=== PATIENT | male | born 1950 | race Caucasian/White ===

== ENCOUNTER 2017-08-09 09:45 | Emergency (ER) | payer MEDICARE, BC ==
[~2017-08-09] VITALS: Ht 182.9 cm; Wt 100.8 kg
[2017-08-09 10:22] LABS: CLARITY,URINE SLIGHTLY CLOUDY (Clear); COLOR,URINE YELLOW (Yellow); GLUCOSE, URINE NEGATIVE (Neg); KETONES,URINE NEGATIVE (Neg); LEUKOCYTE ESTERASE ,URINE NEGATIVE (Neg); NITRITES, URINE NEGATIVE (Neg); OCCULT BLOOD,URINE TRACE-LYSED (Neg); PH,URINE 5.5 (4.8-8.0); PROTEIN,URINE 100 mg/dl (Neg)
[2017-08-09 10:37] LABS: UA COLLECTION TYPE CLN CATCH MIDSTREAM
[2017-08-09 10:42] LABS: BASOPHILS % (AUTO) 0.9 % (0-1); EOSINOPHILS # (AUTO) 0.3 X10'3 (0-0.9); HEMATOCRIT 43.2 % (42.0-52.0); HEMOGLOBIN 14.4 g/dl (14.0-17.9); LYMPHOCYTES % (AUTO) 17.9 % (21-51); MEAN CORPUSCULAR HEMOGLOBIN 31.6 PG (27.0-31.0); MEAN CORPUSCULAR HGB CONC 33.4 % (33.0-36.5); MEAN CORPUSCULAR VOLUME 94.4 FL (78-98); MEAN PLATELET VOLUME 8.5 FL (7.4-10.4); MONOCYTES # (AUTO) 0.5 X10'3 (0-0.9); MONOCYTES % (AUTO) 9.2 % (2-12); NEUTROPHILS # (AUTO) 3.5 X10'3 (1.8-7.7); PLATELET COUNT 255 X10'3 (140-440); RED BLOOD COUNT 4.58 X10'6 (4.70-6.10); RED CELL DISTRIBUTION WIDTH 17.9 % (11.5-14.5); WHITE BLOOD COUNT 5.3 X10'3 (4.5-11.0)
[2017-08-09 10:51] LABS: INR 1.2 INR; PROTHROMBIN TIME 12.7 SECONDS (9.0-12.0)
[2017-08-09 10:56] LABS: MUCUS STRANDS FEW /LPF (Neg); RBC,URINE 0-2 /HPF (0-2); WBC,URINE 0-4 /HPF (0-4)
[2017-08-09 10:56] LABS: ALANINE AMINOTRANSFERASE 30 U/L (12-78); ALBUMIN 3.3 G/DL (3.4-5.0); ALBUMIN/GLOBULIN RATIO 0.9 (1.1-1.5); ALKALINE PHOSPHATASE 101 IU/L (46-116); AMYLASE 44 U/L (25-115); ANION GAP 10 (8-16); ASPARTATE AMINO TRANSFERASE 27 U/L (10-37); BILIRUBIN,TOTAL 1.5 MG/DL (0.1-1.0); BLOOD UREA NITROGEN 19 MG/DL (7-18); BUN/CREATININE RATIO 14.5 (5.4-32.0); CALCIUM 9.3 MG/DL (8.5-10.1); CHLORIDE 107 MMOL/L (99-107); CREATININE 1.31 MG/DL (0.60-1.10); GLUCOSE 105 MG/DL (70-104); LIPASE 191 U/L (73-393); POTASSIUM 4.1 MMOL/L (3.5-5.1); SODIUM 141 MMOL/L (135-145); TOTAL CARBON DIOXIDE 24.2 MMOL/L (24-32); eGFR 55 ML/MIN
[2017-08-09 10:57] LABS: BACTERIA,URINE NONE SEEN /HPF (Neg); SQUAMOUS EPITHELIAL CELL,UR FEW /LPF (FEW); TRANSITIONAL EPI CELLS,URINE FEW /HPF
[2017-08-09 13:14] VITALS: BP 152/88
[2017-08-09 13:32] LABS: ALBUMIN,BODY FLUID 1.9 G/DL; TOTAL PROTEIN,BODY FLUID 3.5 G/DL
[2017-08-09 14:20] LABS: LYMPHOCYTES,BODY FLUID 61 %; MONOCYTES,BODY FLUID 21 %; NEUTROPHILS,BODY FLUID 18 %
[2017-08-09 14:21] LABS: BF WBC COUNT 275 /CU MM (0-1000); BFAPPEAR CLOUDY; BFCOLOR YELLOW; BFVOLUME 57 ML
[2017-08-09 14:22] LABS: BF MESOTHELIAL CELLS MODERATE; BF RBC COUNT 1490 /CU MM
[2017-08-09 15:56] LABS: OTHER CELLS,BODY FLUID MACROPHAGES
== END 2017-08-09 13:12 | disposition home or self-care (01) ==
LOC: ER 09:46
DX: R18.8 Other ascites (principal); R06.02 Shortness of breath
CPT/HCPCS: 36415; 49083; 80053; 81001; 82042; 82150; 83690; 84157; 85025; 85610; 89051; 99285

== ENCOUNTER 2017-08-31 18:10 | Emergency (ER) | payer MEDICARE, BC ==
[~2017-08-31] VITALS: Ht 182.9 cm; Wt 105.6 kg
[2017-08-31] MEDS ORDERED: furosemide 40mg/4ml inj IV ONE (18:35)
[2017-08-31 18:50] LABS: BASOPHILS % (AUTO) 0.6 % (0-1); EOSINOPHILS # (AUTO) 0.2 X10'3 (0-0.9); EOSINOPHILS % (AUTO) 4.2 % (0-6); HEMATOCRIT 43.7 % (42.0-52.0); HEMOGLOBIN 14.6 g/dl (14.0-17.9); LYMPHOCYTES # (AUTO) 1.3 X10'3 (1.1-4.8); LYMPHOCYTES % (AUTO) 22.2 % (21-51); MEAN CORPUSCULAR HEMOGLOBIN 31.6 PG (27.0-31.0); MEAN CORPUSCULAR HGB CONC 33.5 % (33.0-36.5); MEAN CORPUSCULAR VOLUME 94.3 FL (78-98); MEAN PLATELET VOLUME 8.8 FL (7.4-10.4); MONOCYTES # (AUTO) 0.6 X10'3 (0-0.9); MONOCYTES % (AUTO) 10.9 % (2-12); NEUTROPHILS # (AUTO) 3.5 X10'3 (1.8-7.7); NEUTROPHILS % (AUTO) 62.1 % (42-75); PLATELET COUNT 229 X10'3 (140-440); RED BLOOD COUNT 4.64 X10'6 (4.70-6.10); RED CELL DISTRIBUTION WIDTH 18.1 % (11.5-14.5); WHITE BLOOD COUNT 5.7 X10'3 (4.5-11.0)
[2017-08-31 19:12] LABS: ALANINE AMINOTRANSFERASE 27 U/L (12-78); ALBUMIN 3.4 G/DL (3.4-5.0); ALBUMIN/GLOBULIN RATIO 0.8 (1.1-1.5); ALKALINE PHOSPHATASE 112 IU/L (46-116); ANION GAP 12 (8-16); ASPARTATE AMINO TRANSFERASE 26 U/L (10-37); BILIRUBIN,TOTAL 1.4 MG/DL (0.1-1.0); BLOOD UREA NITROGEN 25 MG/DL (7-18); BUN/CREATININE RATIO 20.8 (5.4-32.0); CHLORIDE 105 MMOL/L (99-107); GLUCOSE 106 MG/DL (70-104); POTASSIUM 4.3 MMOL/L (3.5-5.1); SODIUM 139 MMOL/L (135-145); TOTAL CARBON DIOXIDE 22.5 MMOL/L (24-32); TOTAL PROTEIN 7.5 G/DL (6.4-8.2); eGFR 61 ML/MIN
[2017-08-31 19:53] VITALS: BP 150/96
== END 2017-08-31 19:55 | disposition home or self-care (01) ==
LOC: ER 18:11
DX: R18.8 Other ascites (principal); I10 Essential (primary) hypertension
CPT/HCPCS: 36415; 80053; 83880; 84484; 85025; 93005; 96374; 99285; J1940

== ENCOUNTER 2017-09-26 07:02 | Outpatient (CLI) | payer MEDICARE, BC ==
[2017-09-26] MEDS ORDERED: LACT10SO6 PO (07:41)
[2017-09-26] MEDS ORDERED: SPIR100T3 PO (07:41)
[2017-09-26] MEDS ORDERED: FURO-149 PO (07:41)
[2017-09-26] MEDS ORDERED: ZIN220C PO (07:41)
== END 2017-09-26 23:59 | disposition home or self-care (01) ==
LOC: LAB 07:02
PROVIDERS: ATTEND Internal Medicine Gastroenterology
DX: R18.8 Other ascites (principal)

== ENCOUNTER 2017-09-26 07:17 | Day surgery (SDC) | payer MEDICARE, BC ==
[~2017-09-26] VITALS: Ht 182.9 cm; Wt 95.8 kg
[2017-09-26] MEDS ORDERED: ZIN220C PO (07:41)
[2017-09-26] MEDS ORDERED: SPIR100T3 PO (07:41)
[2017-09-26] MEDS ORDERED: FURO-149 PO (07:41)
[2017-09-26] MEDS ORDERED: LACT10SO6 PO (07:41)
[2017-09-26 07:53] VITALS: BP 137/90
[2017-09-26 08:30] VITALS: BP 112/73
[2017-09-26] MEDS ORDERED: LIDOcaine 1% 30ml vial SQ ONE (08:30)
[2017-09-26 08:38] LABS: INR 1.2 INR; PARTIAL THROMBOPLASTIN TIME 26 SECONDS (22-32); PROTHROMBIN TIME 12.4 SECONDS (9.0-12.0)
[2017-09-26 08:45] VITALS: BP 97/62
[2017-09-26] MEDS ORDERED: albumin (human) 25% 100 ML IV solution IV PRN (08:50)
[2017-09-26] MEDS ORDERED: normal saline 1000ml 1,000 ML IV PRN (08:55)
[2017-09-26 08:58] LABS: ALANINE AMINOTRANSFERASE 21 U/L (12-78); ALBUMIN 3.3 G/DL (3.4-5.0); ALBUMIN/GLOBULIN RATIO 0.8 (1.1-1.5); ALKALINE PHOSPHATASE 104 IU/L (46-116); ANION GAP 10 (8-16); ASPARTATE AMINO TRANSFERASE 20 U/L (10-37); BILIRUBIN,TOTAL 1.1 MG/DL (0.1-1.0); BLOOD UREA NITROGEN 28 MG/DL (7-18); BUN/CREATININE RATIO 20.7 (5.4-32.0); CALCIUM 9.4 MG/DL (8.5-10.1); CHLORIDE 101 MMOL/L (99-107); CREATININE 1.35 MG/DL (0.60-1.10); GLUCOSE 85 MG/DL (70-104); POTASSIUM 3.8 MMOL/L (3.5-5.1); SODIUM 137 MMOL/L (135-145); TOTAL CARBON DIOXIDE 26.5 MMOL/L (24-32); TOTAL PROTEIN 7.3 G/DL (6.4-8.2); eGFR 53 ML/MIN
[2017-09-26 09:00] VITALS: BP 111/75
[2017-09-26 09:15] VITALS: BP 117/86
[2017-09-26 09:30] VITALS: BP 115/75
[2017-09-26 09:54] LABS: BASOPHILS % (AUTO) 0.6 % (0-1); EOSINOPHILS # (AUTO) 0.2 X10'3 (0-0.9); EOSINOPHILS % (AUTO) 4.2 % (0-6); HEMATOCRIT 41.1 % (42.0-52.0); LYMPHOCYTES # (AUTO) 0.7 X10'3 (1.1-4.8); LYMPHOCYTES % (AUTO) 16.3 % (21-51); MEAN CORPUSCULAR HEMOGLOBIN 32.2 PG (27.0-31.0); MEAN CORPUSCULAR HGB CONC 34.2 % (33.0-36.5); MEAN CORPUSCULAR VOLUME 94.2 FL (78-98); MEAN PLATELET VOLUME 8.5 FL (7.4-10.4); MONOCYTES # (AUTO) 0.5 X10'3 (0-0.9); MONOCYTES % (AUTO) 12.2 % (2-12); NEUTROPHILS # (AUTO) 2.9 X10'3 (1.8-7.7); NEUTROPHILS % (AUTO) 66.7 % (42-75); PLATELET COUNT 229 X10'3 (140-440); RED BLOOD COUNT 4.36 X10'6 (4.70-6.10); RED CELL DISTRIBUTION WIDTH 17.8 % (11.5-14.5); WHITE BLOOD COUNT 4.4 X10'3 (4.5-11.0)
[2017-09-26 10:19] LABS: ALBUMIN,BODY FLUID 2.3 G/DL; TOTAL PROTEIN,BODY FLUID 4.1 G/DL
[2017-09-26 10:47] LABS: BF WBC COUNT 510 /CU MM (0-1000); BFAPPEAR CLOUDY; BFCOLOR YELLOW; BFVOLUME 53 ML
[2017-09-26 10:48] LABS: BF RBC COUNT 1850 /CU MM
[2017-09-26 10:51] LABS: BASOPHILS,BODY FLUID 1 %; EOSINOPHILS,BODY FLUID 1 %; LYMPHOCYTES,BODY FLUID 76 %; MONOCYTES,BODY FLUID 5 %; NEUTROPHILS,BODY FLUID 17 %
[2017-09-26 10:52] LABS: BF MESOTHELIAL CELLS FEW
[2017-09-27 15:23] LABS: AFP,SERUM, TUMOR MARKER 2.3 ng/mL (0.0-8.3); HBSAG SCREEN Negative (Negative); HEPATITIS C ANTIBODY 0.1 s/co ratio (0.0-0.9)
== END 2017-09-26 09:40 | disposition home or self-care (01) ==
LOC: SSTAY O 07:17
PROVIDERS: ATTEND Radiology Diagnostic Radiology
DX: R18.8 Other ascites (principal); I11.0 Hypertensive heart disease with heart failure; I50.9 Heart failure, unspecified; F10.21 Alcohol dependence, in remission; Z79.01 Long term (current) use of anticoagulants; Z87.891 Personal history of nicotine dependence; Z79.899 Other long term (current) drug therapy
CPT/HCPCS: 36415; 49083; 80053; 82042; 82103; 82728; 83540; 83550; 84157; 84443; 85025; 85610; 85730; 86803; 87070; 87340; 89051; A6257; J3490; J7030; P9047

== ENCOUNTER 2017-11-07 07:00 | Day surgery (SDC) | payer MEDICARE, BC ==
[~2017-11-07 07:00] MED LIST: FURO-149 PO; LACT10SO6 PO; SPIR100T3 PO; ZIN220C PO
[2017-11-07] MEDS ORDERED: LIDOcaine 1% 30ml preserv. free vial ONE (07:56)
[2017-11-07 08:00] VITALS: BP 126/80
[2017-11-07 08:30] VITALS: BP 126/80
[2017-11-07] MEDS ORDERED: LIDOcaine 1% 30ml preserv. free vial SQ ONE (09:00)
== END 2017-11-07 19:39 | disposition home or self-care (01) ==
LOC: SSTAY O 07:00
PROVIDERS: ATTEND Radiology Diagnostic Radiology
DX: K70.31 Alcoholic cirrhosis of liver with ascites (principal); I11.0 Hypertensive heart disease with heart failure; I50.9 Heart failure, unspecified; F10.10 Alcohol abuse, uncomplicated; Z87.891 Personal history of nicotine dependence; Z79.899 Other long term (current) drug therapy
CPT/HCPCS: 76705; A6257; J3490

== ENCOUNTER 2017-11-30 07:39 | Day surgery (SDC) | payer MEDICARE, BC ==
[~2017-11-30] VITALS: Ht 182.9 cm; Wt 89.1 kg
[~2017-11-30 07:39] MED LIST changes: +LIDOcaine 1% 30ml preserv. free vial SQ STA
[2017-11-30 08:00] VITALS: BP 134/106
[2017-11-30] MEDS ORDERED: normal saline 1000ml 1,000 ML IV PRN (08:10)
[2017-11-30] MEDS ORDERED: albumin (human) 25% 100 ML IV solution IV PRN (08:10)
== END 2017-11-30 08:42 | disposition home or self-care (01) ==
LOC: SSTAY O 07:39
PROVIDERS: ATTEND Radiology Diagnostic Radiology
DX: R18.8 Other ascites (principal); I10 Essential (primary) hypertension; F41.9 Anxiety disorder, unspecified; B15.9 Hepatitis A without hepatic coma; Z72.89 Other problems related to lifestyle; Z87.891 Personal history of nicotine dependence; Z98.890 Other specified postprocedural states; Z79.899 Other long term (current) drug therapy
CPT/HCPCS: 76705; J7030; A6257

== ENCOUNTER 2018-01-16 15:41 | Inpatient (IN) | payer MEDICARE, BC ==
[~2018-01-16] VITALS: Ht 185.4 cm; Wt 96.0 kg
[~2018-01-16 15:41] MED LIST changes: +AMIO200T57 PO; +COR3.125T PO; +FURO40TA4 PO; -LIDOcaine 1% 30ml preserv. free vial SQ STA; +POTA10TA19 PO; +SACU1TAB PO; -SPIR100T3 PO; +SPIR100T5 PO
[2018-01-16 16:05] LABS: BASOPHILS % (AUTO) 0.6 % (0-1); EOSINOPHILS # (AUTO) 0.1 X10'3 (0-0.9); HEMATOCRIT 46.9 % (42.0-52.0); HEMOGLOBIN 15.8 g/dl (14.0-17.9); LYMPHOCYTES # (AUTO) 0.6 X10'3 (1.1-4.8); LYMPHOCYTES % (AUTO) 9.4 % (21-51); MEAN CORPUSCULAR HEMOGLOBIN 32.8 PG (27.0-31.0); MEAN CORPUSCULAR HGB CONC 33.7 % (33.0-36.5); MEAN CORPUSCULAR VOLUME 97.2 FL (78-98); MEAN PLATELET VOLUME 7.8 FL (7.4-10.4); MONOCYTES # (AUTO) 0.4 X10'3 (0-0.9); MONOCYTES % (AUTO) 6.6 % (2-12); NEUTROPHILS # (AUTO) 5.1 X10'3 (1.8-7.7); NEUTROPHILS % (AUTO) 82.4 % (42-75); PLATELET COUNT 294 X10'3 (140-440); RED BLOOD COUNT 4.82 X10'6 (4.70-6.10); RED CELL DISTRIBUTION WIDTH 16.5 % (11.5-14.5); WHITE BLOOD COUNT 6.2 X10'3 (4.5-11.0)
[2018-01-16 16:19] LABS: ALANINE AMINOTRANSFERASE 43 U/L (12-78); ALBUMIN/GLOBULIN RATIO 0.8 (1.1-1.5); ALKALINE PHOSPHATASE 129 IU/L (46-116); ANION GAP 11 (8-16); ASPARTATE AMINO TRANSFERASE 25 U/L (10-37); BILIRUBIN,TOTAL 1.7 MG/DL (0.1-1.0); BLOOD UREA NITROGEN 43 MG/DL (7-18); BUN/CREATININE RATIO 23.8 (5.4-32.0); CALCIUM 9.4 MG/DL (8.5-10.1); CHLORIDE 99 MMOL/L (99-107); CREATININE 1.81 MG/DL (0.60-1.10); GLUCOSE 169 MG/DL (70-104); POTASSIUM 5.4 MMOL/L (3.5-5.1); SODIUM 134 MMOL/L (135-145); TOTAL CARBON DIOXIDE 23.9 MMOL/L (24-32); TOTAL PROTEIN 9.3 G/DL (6.4-8.2); eGFR 38 ML/MIN
[2018-01-16 16:30] LABS: MAGNESIUM 2.2 MG/DL (1.5-2.4)
[2018-01-16] MEDS ORDERED: SACU1TAB PO (17:54)
[2018-01-16] MEDS ORDERED: mag hydrox/Alum hydrox/simeth 30ml oral suspension PO PRN (18:00)
[2018-01-16] MEDS ORDERED: HYDROcodone/acetaminophen 5mg/325mg tablet PO PRN (18:00)
[2018-01-16] MEDS ORDERED: magnesium hydroxide 30ml (MOM) UD suspension PO PRN (18:00)
[2018-01-16] MEDS ORDERED: potassium Cl 40MEQ/NS 500ml 500 ML IV PRN ×2 (18:00)
[2018-01-16] MEDS ORDERED: magnesium 4gm in 100ml NS 100 ML IV PRN (18:00)
[2018-01-16] MEDS ORDERED: potassium Cl 20 mEq SR tablet PO PRN ×2 (18:00)
[2018-01-16] MEDS ORDERED: HYDROcodone/acetaminophen 10/325mg tab PO PRN (18:00)
[2018-01-16] MEDS ORDERED: acetaminophen 325mg tablet PO PRN (18:00)
[2018-01-16] MEDS ORDERED: magnesium Cl slow-release 64mg tablet PO PRN (18:00)
[2018-01-16] MEDS ORDERED: ondansetron/PF 4mg/2ml inj IV PRN (18:00)
[2018-01-16] MEDS ORDERED: magnesium 2GM in 50ml NS 50 ML IV PRN (18:00)
[2018-01-16] MEDS ORDERED: normal saline 1000ml 1,000 ML IV ONE (18:20)
[2018-01-16] MEDS ORDERED: furosemide 40mg tablet PO SCH (20:00)
[2018-01-16] MEDS: docusate sod 100mg capsule PO SCH (20:40)
[2018-01-17] VITALS (7 sets, daily range): BP systolic 97–116; BP diastolic 53–70
[2018-01-17 05:53] LABS: BASOPHILS % (AUTO) 0.5 % (0-1); EOSINOPHILS # (AUTO) 0.1 X10'3 (0-0.9); EOSINOPHILS % (AUTO) 1.5 % (0-6); HEMATOCRIT 41.2 % (42.0-52.0); HEMOGLOBIN 14.1 g/dl (14.0-17.9); LYMPHOCYTES # (AUTO) 0.8 X10'3 (1.1-4.8); MEAN CORPUSCULAR HGB CONC 34.1 % (33.0-36.5); MEAN CORPUSCULAR VOLUME 96.7 FL (78-98); MEAN PLATELET VOLUME 7.9 FL (7.4-10.4); MONOCYTES # (AUTO) 0.7 X10'3 (0-0.9); MONOCYTES % (AUTO) 8.6 % (2-12); NEUTROPHILS % (AUTO) 78.4 % (42-75); PLATELET COUNT 251 X10'3 (140-440); RED BLOOD COUNT 4.27 X10'6 (4.70-6.10); WHITE BLOOD COUNT 7.7 X10'3 (4.5-11.0)
[2018-01-17 06:05] LABS: ALANINE AMINOTRANSFERASE 36 U/L (12-78); ALBUMIN 3.3 G/DL (3.4-5.0); ALBUMIN/GLOBULIN RATIO 0.8 (1.1-1.5); ALKALINE PHOSPHATASE 103 IU/L (46-116); ANION GAP 12 (8-16); ASPARTATE AMINO TRANSFERASE 23 U/L (10-37); BILIRUBIN,TOTAL 1.5 MG/DL (0.1-1.0); BLOOD UREA NITROGEN 35 MG/DL (7-18); BUN/CREATININE RATIO 24.8 (5.4-32.0); CALCIUM 8.7 MG/DL (8.5-10.1); CHLORIDE 102 MMOL/L (99-107); CREATININE 1.41 MG/DL (0.60-1.10); GLUCOSE 97 MG/DL (70-104); POTASSIUM 4.4 MMOL/L (3.5-5.1); SODIUM 136 MMOL/L (135-145); TOTAL CARBON DIOXIDE 22.5 MMOL/L (24-32); TOTAL PROTEIN 7.3 G/DL (6.4-8.2); eGFR 50 ML/MIN
[2018-01-17 06:09] LABS: PHOSPHORUS 3.5 MG/DL (2.3-4.5)
[2018-01-17] MEDS: amiodarone 200mg tablet PO SCH (07:37)
[2018-01-17] MEDS: docusate sod 100mg capsule PO SCH ×2 (07:37→19:26)
[2018-01-17] MEDS: potassium chloride 10mEq ER tablet PO SCH (07:37)
[2018-01-17] MEDS: enoxaparin 40mg/0.4ml syringe SQ SCH (07:37)
[2018-01-17] MEDS: levoTHYROXINE 25mcg tablet PO SCH (07:37)
[2018-01-17] MEDS: sacubitril/valsartan 24mg-26mg tablet PO SCH (07:48)
[2018-01-17] MEDS: K and/or MAG REPLACEMENT MC SCH (08:00)
[2018-01-17] MEDS ORDERED: spironolactone 25 MG tablet PO SCH (08:00)
[2018-01-18 04:00] VITALS: BP 101/52
[2018-01-18 05:39] LABS: BASOPHILS # (AUTO) 0.1 X10'3 (0-0.2); EOSINOPHILS # (AUTO) 0.1 X10'3 (0-0.9); EOSINOPHILS % (AUTO) 2.6 % (0-6); HEMATOCRIT 38.2 % (42.0-52.0); HEMOGLOBIN 13.3 g/dl (14.0-17.9); LYMPHOCYTES # (AUTO) 1.4 X10'3 (1.1-4.8); LYMPHOCYTES % (AUTO) 25.9 % (21-51); MEAN CORPUSCULAR HGB CONC 34.9 % (33.0-36.5); MEAN CORPUSCULAR VOLUME 94.7 FL (78-98); MEAN PLATELET VOLUME 7.6 FL (7.4-10.4); MONOCYTES # (AUTO) 0.6 X10'3 (0-0.9); MONOCYTES % (AUTO) 12.1 % (2-12); NEUTROPHILS # (AUTO) 3.1 X10'3 (1.8-7.7); NEUTROPHILS % (AUTO) 58.4 % (42-75); PLATELET COUNT 242 X10'3 (140-440); RED BLOOD COUNT 4.03 X10'6 (4.70-6.10); RED CELL DISTRIBUTION WIDTH 16.1 % (11.5-14.5); WHITE BLOOD COUNT 5.2 X10'3 (4.5-11.0)
[2018-01-18 06:00] VITALS: BP 87/45
[2018-01-18 06:07] LABS: ALANINE AMINOTRANSFERASE 38 U/L (12-78); ALBUMIN 3.3 G/DL (3.4-5.0); ALBUMIN/GLOBULIN RATIO 0.8 (1.1-1.5); ALKALINE PHOSPHATASE 97 IU/L (46-116); ANION GAP 10 (8-16); ASPARTATE AMINO TRANSFERASE 22 U/L (10-37); BILIRUBIN,TOTAL 1.2 MG/DL (0.1-1.0); BLOOD UREA NITROGEN 33 MG/DL (7-18); BUN/CREATININE RATIO 23.2 (5.4-32.0); CALCIUM 8.8 MG/DL (8.5-10.1); CHLORIDE 103 MMOL/L (99-107); CREATININE 1.42 MG/DL (0.60-1.10); GLUCOSE 88 MG/DL (70-104); MAGNESIUM 1.8 MG/DL (1.5-2.4); PHOSPHORUS 3.7 MG/DL (2.3-4.5); POTASSIUM 4.7 MMOL/L (3.5-5.1); SODIUM 136 MMOL/L (135-145); TOTAL PROTEIN 7.2 G/DL (6.4-8.2); eGFR 50 ML/MIN
[2018-01-18] MEDS: K and/or MAG REPLACEMENT MC SCH (08:00)
[2018-01-18] MEDS: enoxaparin 40mg/0.4ml syringe SQ SCH (08:00)
[2018-01-18] MEDS: docusate sod 100mg capsule PO SCH (08:00)
[2018-01-18] MEDS: potassium chloride 10mEq ER tablet PO SCH (08:55)
[2018-01-18] MEDS: levoTHYROXINE 25mcg tablet PO SCH (08:55)
[2018-01-18] MEDS: amiodarone 200mg tablet PO SCH (08:55)
[2018-01-18] MEDS: sacubitril/valsartan 24mg-26mg tablet PO SCH (08:59)
[2018-01-18] MEDS ORDERED: pneumococcal 23-VAL P-sac vacc 25 mcg/0.5ml vial IMVAC ONE (10:00)
[2018-01-18 11:00] VITALS: BP 113/65
[2018-01-18] MEDS ORDERED: AMIO200T57 PO (11:48)
[2018-01-18] MEDS ORDERED: LEVO25TA7 PO (11:48)
[2018-01-18 15:00] VITALS: BP 94/59
[2018-01-19] MEDS ORDERED: CARV3.122 (17:37)
[2018-01-19] MEDS ORDERED: POTA10TA36 (17:37)
== END 2018-01-18 15:45 | disposition home or self-care (01) | DRG 683 ==
LOC: ER 15:41 → ED HOLD 17:58 → PCU 3S 01-17 00:21
PROVIDERS: ADMIT Internal Medicine; ATTEND Internal Medicine
DX: N17.9 Acute kidney failure, unspecified (principal); I13.0 Hypertensive heart and chronic kidney disease with heart failure and stage 1 through stage 4 chronic kidney disease, or unspecified chronic kidney disease; I50.22 Chronic systolic (congestive) heart failure; I47.2 Ventricular tachycardia; I45.2 Bifascicular block; I42.9 Cardiomyopathy, unspecified; R00.1 Bradycardia, unspecified; E87.5 Hyperkalemia; J44.9 Chronic obstructive pulmonary disease, unspecified; I27.20 Pulmonary hypertension, unspecified; I25.10 Atherosclerotic heart disease of native coronary artery without angina pectoris; K76.9 Liver disease, unspecified; I48.91 Unspecified atrial fibrillation; E03.9 Hypothyroidism, unspecified; N18.9 Chronic kidney disease, unspecified; Z87.891 Personal history of nicotine dependence; Z28.21 Immunization not carried out because of patient refusal; Z79.899 Other long term (current) drug therapy
CPT/HCPCS: 36415; 71045; 76700; 80053; 83735; 83880; 84100; 84439; 84443; 84484; 85025; 87070; 93005; 93308; 99285; J1650; J7030

== ENCOUNTER 2018-01-19 17:04 | Emergency (ER) | payer MEDICARE, BC ==
[~2018-01-19] VITALS: Ht 185.4 cm; Wt 100.0 kg
[~2018-01-19 17:04] MED LIST changes: -COR3.125T PO; -FURO40TA4 PO; -LACT10SO6 PO; +LEVO25TA7 PO; -POTA10TA19 PO; -SPIR100T5 PO; -ZIN220C PO; +niCARDipine in NS 40mg/200ml (0.2mg/ml) IVPB IV ONE
[2018-01-19 17:37] LABS: BASOPHILS # (AUTO) 0.1 X10'3 (0-0.2); EOSINOPHILS # (AUTO) 0.1 X10'3 (0-0.9); EOSINOPHILS % (AUTO) 2.4 % (0-6); HEMOGLOBIN 14.7 g/dl (14.0-17.9); LYMPHOCYTES # (AUTO) 1.1 X10'3 (1.1-4.8); LYMPHOCYTES % (AUTO) 19.2 % (21-51); MEAN CORPUSCULAR HGB CONC 34.2 % (33.0-36.5); MEAN CORPUSCULAR VOLUME 96.4 FL (78-98); MEAN PLATELET VOLUME 8.1 FL (7.4-10.4); MONOCYTES # (AUTO) 0.7 X10'3 (0-0.9); MONOCYTES % (AUTO) 12.9 % (2-12); NEUTROPHILS # (AUTO) 3.7 X10'3 (1.8-7.7); NEUTROPHILS % (AUTO) 64.5 % (42-75); PLATELET COUNT 222 X10'3 (140-440); RED BLOOD COUNT 4.46 X10'6 (4.70-6.10); RED CELL DISTRIBUTION WIDTH 16.4 % (11.5-14.5); WHITE BLOOD COUNT 5.7 X10'3 (4.5-11.0)
[2018-01-19] MEDS ORDERED: POTA10TA36 (17:37)
[2018-01-19] MEDS ORDERED: CARV3.122 (17:37)
[2018-01-19 18:18] LABS: INR 1.1 INR; PARTIAL THROMBOPLASTIN TIME 26 SECONDS (22-32); PROTHROMBIN TIME 11.3 SECONDS (9.0-12.0)
[2018-01-19 18:24] LABS: ALANINE AMINOTRANSFERASE 50 U/L (12-78); ALBUMIN 3.7 G/DL (3.4-5.0); ALBUMIN/GLOBULIN RATIO 0.8 (1.1-1.5); ALKALINE PHOSPHATASE 123 IU/L (46-116); ANION GAP 12 (8-16); ASPARTATE AMINO TRANSFERASE 31 U/L (10-37); BLOOD UREA NITROGEN 36 MG/DL (7-18); BUN/CREATININE RATIO 23.4 (5.4-32.0); CALCIUM 8.7 MG/DL (8.5-10.1); CHLORIDE 102 MMOL/L (99-107); CREATININE 1.54 MG/DL (0.60-1.10); ETHANOL < 0.010 GM/DL (0.0-0.010); GLUCOSE 125 MG/DL (70-104); POTASSIUM 4.5 MMOL/L (3.5-5.1); SODIUM 137 MMOL/L (135-145); TOTAL CARBON DIOXIDE 22.6 MMOL/L (24-32); TOTAL PROTEIN 8.1 G/DL (6.4-8.2); eGFR 46 ML/MIN
[2018-01-19] MEDS ORDERED: iohexol 350MG/ML 100ml bottle IV ONE (18:46)
[2018-01-19 20:47] VITALS: BP 146/86
== END 2018-01-19 20:52 | disposition short-term general hospital (02) ==
LOC: ER 17:05
DX: I63.9 Cerebral infarction, unspecified (principal); G81.91 Hemiplegia, unspecified affecting right dominant side; I48.91 Unspecified atrial fibrillation; I10 Essential (primary) hypertension; Z79.899 Other long term (current) drug therapy
CPT/HCPCS: 36415; 70450; 70496; 70498; 71045; 80053; 80320; 85025; 85610; 85730; 93005; 99291; 99292; J7030; Q9967

== ENCOUNTER 2018-06-04 08:19 | Day surgery (SDC) | payer MEDICARE, BC ==
[~2018-06-04 08:19] MED LIST changes: +AMIO200T40 PO; -AMIO200T57 PO; +CARV3.122; +LIDOcaine 1% (10mg/ml)w/preservative injection 20ml MDV SQ ONE; +POTA10TA36; -niCARDipine in NS 40mg/200ml (0.2mg/ml) IVPB IV ONE
[2018-06-04 08:32] VITALS: BP 148/99
[2018-06-04] MEDS ORDERED: LIDOcaine 1% 30ml preserv. free vial SQ ONE (08:35)
[2018-06-04 09:25] LABS: BASOPHILS % (AUTO) 0.6 % (0-1); EOSINOPHILS # (AUTO) 0.1 X10'3 (0-0.9); EOSINOPHILS % (AUTO) 2.2 % (0-6); HEMATOCRIT 38.1 % (42.0-52.0); HEMOGLOBIN 12.8 g/dl (14.0-17.9); LYMPHOCYTES # (AUTO) 0.7 X10'3 (1.1-4.8); LYMPHOCYTES % (AUTO) 14.5 % (21-51); MEAN CORPUSCULAR HEMOGLOBIN 32.8 PG (27.0-31.0); MEAN CORPUSCULAR HGB CONC 33.6 % (33.0-36.5); MEAN CORPUSCULAR VOLUME 97.7 FL (78-98); MEAN PLATELET VOLUME 8.6 FL (7.4-10.4); MONOCYTES # (AUTO) 0.5 X10'3 (0-0.9); MONOCYTES % (AUTO) 10.5 % (2-12); NEUTROPHILS # (AUTO) 3.5 X10'3 (1.8-7.7); NEUTROPHILS % (AUTO) 72.2 % (42-75); PLATELET COUNT 206 X10'3 (140-440); WHITE BLOOD COUNT 4.9 X10'3 (4.5-11.0)
[2018-06-04 10:07] LABS: PROTHROMBIN TIME 30.7 SECONDS (9.0-12.0)
[2018-06-04 10:08] LABS: INR 3.1 INR
[2018-06-05] MEDS ORDERED: WARF2TAB PO (08:13)
== END 2018-06-04 10:20 | disposition home or self-care (01) ==
LOC: SSTAY O 08:19
PROVIDERS: ATTEND Radiology Diagnostic Radiology
DX: R18.8 Other ascites (principal); Z53.8 Procedure and treatment not carried out for other reasons; I11.0 Hypertensive heart disease with heart failure; I50.9 Heart failure, unspecified; I48.91 Unspecified atrial fibrillation; E78.00 Pure hypercholesterolemia, unspecified; F10.10 Alcohol abuse, uncomplicated; F41.8 Other specified anxiety disorders; Z87.891 Personal history of nicotine dependence; Z79.01 Long term (current) use of anticoagulants; Z86.19 Personal history of other infectious and parasitic diseases; Z86.73 Personal history of transient ischemic attack (TIA), and cerebral infarction without residual deficits; Z79.899 Other long term (current) drug therapy; Z98.890 Other specified postprocedural states
CPT/HCPCS: 36415; 49083; 76705; 85025; 85610; J3490

== ENCOUNTER 2018-06-05 07:48 | Day surgery (SDC) | payer MEDICARE, BC ==
[2018-06-05] VITALS (8 sets, daily range): BP systolic 113–137; BP diastolic 74–89
[~2018-06-05] VITALS: Ht 182.9 cm; Wt 104.1 kg
[~2018-06-05 07:48] MED LIST changes: -LIDOcaine 1% (10mg/ml)w/preservative injection 20ml MDV SQ ONE
[2018-06-05] MEDS ORDERED: WARF2TAB PO (08:13)
[2018-06-05] MEDS ORDERED: LIDOcaine 1% 30ml preserv. free vial SQ ONE (08:25)
[2018-06-05 08:40] LABS: PROTHROMBIN TIME 24.1 SECONDS (9.0-12.0)
[2018-06-05 08:41] LABS: INR 2.5 INR
[2018-06-05] MEDS ORDERED: LIDOcaine 1% 30ml preserv. free vial SQ STA (09:25)
[2018-06-05] MEDS ORDERED: LIDOcaine 1% (10mg/ml)w/preservative injection 20ml MDV SQ ONE (09:30)
[2018-06-05 13:42] LABS: BFAPPEAR CLOUDY; BFCOLOR YELLOW
[2018-06-05 13:43] LABS: BF RBC COUNT 3325 /CU MM; BF WBC COUNT 166 /CU MM (0-1000); BFVOLUME 55 ML; LYMPHOCYTES,BODY FLUID 90 %; MONOCYTES,BODY FLUID 5 %; NEUTROPHILS,BODY FLUID 5 %
== END 2018-06-05 10:40 | disposition home or self-care (01) ==
LOC: SSTAY O 07:48
PROVIDERS: ATTEND Radiology Vascular & Interventional Radiology
DX: J90 Pleural effusion, not elsewhere classified (principal); R18.8 Other ascites; I11.0 Hypertensive heart disease with heart failure; I50.9 Heart failure, unspecified; E78.00 Pure hypercholesterolemia, unspecified; I48.91 Unspecified atrial fibrillation; F10.10 Alcohol abuse, uncomplicated; F41.8 Other specified anxiety disorders; Z86.19 Personal history of other infectious and parasitic diseases; Z87.891 Personal history of nicotine dependence; Z95.0 Presence of cardiac pacemaker; Z86.73 Personal history of transient ischemic attack (TIA), and cerebral infarction without residual deficits; Z79.01 Long term (current) use of anticoagulants; Z98.890 Other specified postprocedural states; Z79.899 Other long term (current) drug therapy
CPT/HCPCS: 32555; 36415; 49083; 71045; 85610; 87070; 88341; 88342; 89051; J3490; 88108; 88305

== ENCOUNTER 2022-09-27 09:46 | Outpatient (CLI) | payer MEDICARE, OTHER ==
[~2022-09-27 09:46] MED LIST changes: -AMIO200T40 PO; +AMIO200T61 PO; +POTA-206; -POTA10TA36; +WARF2TAB PO
== END 2022-09-27 23:59 | disposition home or self-care (01) ==
LOC: RAD 09:46
PROVIDERS: ATTEND Internal Medicine Cardiovascular Disease
DX: I08.8 Other rheumatic multiple valve diseases (principal); I25.10 Atherosclerotic heart disease of native coronary artery without angina pectoris
CPT/HCPCS: 93306

== ENCOUNTER 2023-03-01 15:32 | Outpatient (CLI) | payer MEDICARE, OTHER ==
[~2023-03-01] VITALS: Ht 182.9 cm; Wt 99.3 kg
[~2023-03-01 15:32] MED LIST changes: +AMI200T PO; -AMIO200T61 PO
[2023-03-01 16:09] LABS: TOTAL HEMOGLOBIN 10.1 G/dl (14.0-17.9)
[2023-03-01] MEDS ORDERED: albuterol 2.5 MG/3 ML nebule NEB ONE (16:30)
== END 2023-03-01 23:59 | disposition home or self-care (01) ==
LOC: RT 15:32
PROVIDERS: ATTEND Internal Medicine Cardiovascular Disease
DX: R94.2 Abnormal results of pulmonary function studies (principal); R06.02 Shortness of breath; Z79.899 Other long term (current) drug therapy
CPT/HCPCS: 85018; 94060; 94727; 94729; 94760

== ENCOUNTER 2023-07-26 15:18 | Inpatient (IN) | payer MEDICARE, OTHER ==
[~2023-07-26] VITALS: Ht 182.9 cm; Wt 97.7 kg
[2023-07-26 15:41] LABS: BASOPHILS % (AUTO) 0.4 % (0-1); EOSINOPHILS % (AUTO) 0.1 % (0-6); HEMATOCRIT 38.9 % (42.0-52.0); HEMOGLOBIN 13.4 g/dl (14.0-17.9); LYMPHOCYTES # (AUTO) 0.4 X10'3 (1.1-4.8); LYMPHOCYTES % (AUTO) 4.1 % (21-51); MEAN CORPUSCULAR HEMOGLOBIN 34.6 PG (27.0-31.0); MEAN CORPUSCULAR HGB CONC 34.5 g/dL (33.0-36.5); MEAN CORPUSCULAR VOLUME 100.2 FL (78-98); MEAN PLATELET VOLUME 8.2 FL (7.4-10.4); MONOCYTES % (AUTO) 10.2 % (2-12); NEUTROPHILS % (AUTO) 85.2 % (42-75); PLATELET COUNT 206 X10'3 (140-440); RED BLOOD COUNT 3.88 X10'6 (4.70-6.10); RED CELL DISTRIBUTION WIDTH 14.8 % (11.5-14.5); WHITE BLOOD COUNT 9.3 X10'3 (4.5-11.0)
[2023-07-26 16:04] LABS: ALANINE AMINOTRANSFERASE 47 U/L (12-78); ALBUMIN 3.3 G/DL (3.4-5.0); ALBUMIN/GLOBULIN RATIO 0.7 (1.1-1.5); ALKALINE PHOSPHATASE 87 IU/L (46-116); ANION GAP 8 (8-16); ASPARTATE AMINO TRANSFERASE 42 U/L (10-37); BILIRUBIN,TOTAL 1.2 MG/DL (0.1-1.0); BLOOD UREA NITROGEN 44 MG/DL (7-18); BUN/CREATININE RATIO 22.7 (10.0-20.0); CALCIUM 9.4 MG/DL (8.5-10.1); CHLORIDE 94 MMOL/L (99-107); CREATININE 1.94 MG/DL (0.60-1.10); GLUCOSE 139 MG/DL (70-104); PRO BRAIN NATRIURETIC PEPTIDE 8908 PG/ML (0-125); SODIUM 131 MMOL/L (135-145); TOTAL CARBON DIOXIDE 29.3 MMOL/L (24-32); TOTAL PROTEIN 7.9 G/DL (6.4-8.2); eCRCL 38 ML/MIN; eGFR 34 ML/MIN
[2023-07-26 16:08] LABS: POTASSIUM 2.9 MMOL/L (3.5-5.1)
[2023-07-26] MEDS ORDERED: nitroGLYCERIN 0.4mg SUBLingual tab SL PRN ×2 (16:20→17:30)
[2023-07-26] MEDS: POTASSIUM BICARB 20meq eff tab 20 MEQ TABLET.EFF PO SCH (17:49)
[2023-07-26] MEDS ORDERED: magnesium 2GM in 50ml NS 50 ML IV PRN (17:50)
[2023-07-26] MEDS ORDERED: magnesium hydroxide 30ml (MOM) UD suspension PO PRN (17:50)
[2023-07-26] MEDS ORDERED: potassium Cl 20 mEq SR tablet PO PRN ×2 (17:50)
[2023-07-26] MEDS ORDERED: magnesium 4gm in 100ml NS 100 ML IV PRN (17:50)
[2023-07-26] MEDS ORDERED: ondansetron/PF 4mg/2ml inj IV PRN (17:50)
[2023-07-26] MEDS ORDERED: mag hydrox/Alum hydrox/simeth 30ml oral suspension PO PRN (17:50)
[2023-07-26] MEDS ORDERED: acetaminophen 325mg tablet PO PRN (17:50)
[2023-07-26] MEDS ORDERED: magnesium Cl slow-release 64mg tablet PO PRN (17:50)
[2023-07-26 18:06] LABS: MAGNESIUM 2.1 MG/DL (1.5-2.4)
[2023-07-26] MEDS ORDERED: furosemide 10 MG/1 ML 10ml inj IV ONE (18:55)
[2023-07-26 19:22] LABS: D-DIMER 0.35 MG/L FEU (0-0.50); INR 2.1 INR; PROTHROMBIN TIME 21.2 SECONDS (9.0-12.0)
[2023-07-26] MEDS ORDERED: amiodarone 100mg tablet PO ONE (20:00)
[2023-07-26 21:58] LABS: POTASSIUM 2.9 MMOL/L (3.5-5.1)
[2023-07-26] MEDS: K and/or MAG REPLACEMENT MC SCH (22:10)
[2023-07-26] MEDS: warfarin 2.5mg tablet PO SCH (22:14)
[2023-07-26] MEDS: potassium Cl 40MEQ/1/2NS 520ml 520 ML IV PRN (23:10)
[2023-07-27] VITALS (8 sets, daily range): BP systolic 97–116; BP diastolic 59–70; PULSE 73–100; RESP 13–16; TEMP 96.9–98.4; O2SAT 96–98
[2023-07-27] MEDS: potassium Cl 40MEQ/1/2NS 520ml 520 ML IV PRN (05:29)
[2023-07-27 06:45] LABS: BASOPHILS % (AUTO) 0.2 % (0-1); EOSINOPHILS % (AUTO) 0.1 % (0-6); HEMATOCRIT 38.9 % (42.0-52.0); LYMPHOCYTES # (AUTO) 0.2 X10'3 (1.1-4.8); LYMPHOCYTES % (AUTO) 2.6 % (21-51); MEAN CORPUSCULAR HEMOGLOBIN 33.8 PG (27.0-31.0); MEAN CORPUSCULAR HGB CONC 33.5 g/dL (33.0-36.5); MEAN CORPUSCULAR VOLUME 100.9 FL (78-98); MEAN PLATELET VOLUME 7.6 FL (7.4-10.4); MONOCYTES % (AUTO) 11.1 % (2-12); NEUTROPHILS # (AUTO) 7.8 X10'3 (1.8-7.7); PLATELET COUNT 192 X10'3 (140-440); RED BLOOD COUNT 3.85 X10'6 (4.70-6.10); RED CELL DISTRIBUTION WIDTH 14.8 % (11.5-14.5)
[2023-07-27 07:02] LABS: ALANINE AMINOTRANSFERASE 38 U/L (12-78); ALBUMIN 2.9 G/DL (3.4-5.0); ALBUMIN/GLOBULIN RATIO 0.6 (1.1-1.5); ALKALINE PHOSPHATASE 72 IU/L (46-116); ANION GAP 6 (8-16); ASPARTATE AMINO TRANSFERASE 33 U/L (10-37); BILIRUBIN,TOTAL 1.5 MG/DL (0.1-1.0); BLOOD UREA NITROGEN 35 MG/DL (7-18); BUN/CREATININE RATIO 21.5 (10.0-20.0); CALCIUM 9.1 MG/DL (8.5-10.1); CHLORIDE 96 MMOL/L (99-107); CREATININE 1.63 MG/DL (0.60-1.10); GLUCOSE 135 MG/DL (70-104); POTASSIUM 3.5 MMOL/L (3.5-5.1); SODIUM 133 MMOL/L (135-145); TOTAL CARBON DIOXIDE 30.7 MMOL/L (24-32); TOTAL PROTEIN 7.6 G/DL (6.4-8.2); eCRCL 46 ML/MIN; eGFR 42 ML/MIN
[2023-07-27 07:11] LABS: CHOL/HDL RATIO 1.6 (0.00-4.99); CHOLESTEROL 124 MG/DL (0-200); HDL CHOLESTEROL 79 MG/DL (35-60); LDL CHOLESTEROL 38 MG/DL (50-100); PRO BRAIN NATRIURETIC PEPTIDE 7513 PG/ML (0-125); THYROID STIMULATING HORMONE 2.15 ulU/ml (0.34-4.50); TRIGLYCERIDES 39 MG/DL (20-135)
[2023-07-27 07:12] LABS: HEMOGLOBIN A1C 6.1 % (4.5-6.2)
[2023-07-27] MEDS ORDERED: furosemide 10 MG/1 ML 10ml inj IV SCH (08:00)
[2023-07-27] MEDS: K and/or MAG REPLACEMENT MC SCH ×2 (08:00→20:00)
[2023-07-27 11:34] LABS: INR 2.4 INR; PROTHROMBIN TIME 24.3 SECONDS (9.0-12.0)
[2023-07-27] MEDS: POTASSIUM BICARB 20meq eff tab 20 MEQ TABLET.EFF PO SCH (17:35)
[2023-07-27] MEDS: warfarin 2.5mg tablet PO SCH (20:48)
[2023-07-28 01:12] LABS: BILIRUBIN,URINE NEGATIVE (Neg); CLARITY,URINE SLIGHTLY CLOUDY (Clear); COLOR,URINE AMBER (Yellow); GLUCOSE, URINE NEGATIVE (Neg); KETONES,URINE TRACE mg/dl (Neg); LEUKOCYTE ESTERASE ,URINE NEGATIVE (Neg); NITRITES, URINE NEGATIVE (Neg); OCCULT BLOOD,URINE SMALL (Neg); PROTEIN,URINE 100 mg/dl (Neg)
[2023-07-28 01:18] LABS: UA COLLECTION TYPE OTHER
[2023-07-28 01:19] LABS: CHLORIDE,URINE RANDOM < 50 MEQ/L
[2023-07-28 01:20] LABS: SQUAMOUS EPITHELIAL CELL,UR FEW /LPF (FEW)
[2023-07-28 01:22] LABS: BACTERIA,URINE 2+ /HPF (Neg); RBC,URINE 0-2 /HPF (0-2); RENAL CELLS, URINE FEW /HPF; TRANSITIONAL EPI CELLS,URINE FEW /HPF
[2023-07-28 01:25] LABS: FINE GRANULAR CAST 0-3 /LPF (NEGATIVE)
[2023-07-28 02:00] VITALS: BP 102/63; PULSE 101; RESP 16; TEMP 97.2; O2SAT 97
[2023-07-28] MEDS ORDERED: WARF2.5T82 PO (06:58)
[2023-07-28] MEDS ORDERED: LOSA25TA41 PO (06:58)
[2023-07-28] MEDS ORDERED: CARV3.123 PO (06:58)
[2023-07-28] MEDS ORDERED: FURO40TA4 PO ×2 (06:58→12:15)
[2023-07-28] MEDS ORDERED: FLO0.4C PO (06:58)
[2023-07-28] MEDS ORDERED: LEVO100T9 PO (06:58)
[2023-07-28] MEDS ORDERED: ZAR2.5T PO (06:58)
[2023-07-28 07:00] VITALS: BP 133/75; PULSE 77; RESP 21; TEMP 97.2; O2SAT 98
[2023-07-28 07:12] LABS: INR 2.6 INR; PROTHROMBIN TIME 25.9 SECONDS (9.0-12.0)
[2023-07-28 07:19] LABS: BASOPHILS % (AUTO) 0.1 % (0-1); EOSINOPHILS % (AUTO) 0.1 % (0-6); HEMATOCRIT 34.5 % (42.0-52.0); HEMOGLOBIN 11.9 g/dl (14.0-17.9); LYMPHOCYTES # (AUTO) 0.4 X10'3 (1.1-4.8); LYMPHOCYTES % (AUTO) 3.6 % (21-51); MEAN CORPUSCULAR HEMOGLOBIN 34.3 PG (27.0-31.0); MEAN CORPUSCULAR HGB CONC 34.3 g/dL (33.0-36.5); MEAN PLATELET VOLUME 8.2 FL (7.4-10.4); MONOCYTES # (AUTO) 1.4 X10'3 (0-0.9); MONOCYTES % (AUTO) 11.5 % (2-12); NEUTROPHILS % (AUTO) 84.7 % (42-75); PLATELET COUNT 192 X10'3 (140-440); RED BLOOD COUNT 3.45 X10'6 (4.70-6.10); RED CELL DISTRIBUTION WIDTH 14.9 % (11.5-14.5); WHITE BLOOD COUNT 11.8 X10'3 (4.5-11.0)
[2023-07-28 07:48] LABS: ALANINE AMINOTRANSFERASE 37 U/L (12-78); ALBUMIN 2.5 G/DL (3.4-5.0); ALBUMIN/GLOBULIN RATIO 0.6 (1.1-1.5); ALKALINE PHOSPHATASE 69 IU/L (46-116); ANION GAP 8 (8-16); ASPARTATE AMINO TRANSFERASE 31 U/L (10-37); BILIRUBIN,TOTAL 1.9 MG/DL (0.1-1.0); BLOOD UREA NITROGEN 29 MG/DL (7-18); CALCIUM 8.9 MG/DL (8.5-10.1); CHLORIDE 94 MMOL/L (99-107); CREATININE 1.61 MG/DL (0.60-1.10); GLUCOSE 102 MG/DL (70-104); MAGNESIUM 1.9 MG/DL (1.5-2.4); POTASSIUM 3.6 MMOL/L (3.5-5.1); SODIUM 131 MMOL/L (135-145); TOTAL CARBON DIOXIDE 28.7 MMOL/L (24-32); TOTAL PROTEIN 6.8 G/DL (6.4-8.2); eCRCL 46 ML/MIN; eGFR 43 ML/MIN
[2023-07-28 08:00] VITALS: BP_SYST 101; BP_SYST 91; BP_DIAS 47; BP_DIAS 58; BP_DIAS 59; PULSE 83; RESP 21; O2SAT 98
[2023-07-28] MEDS ORDERED: losartan 25mg tablet PO SCH (08:00)
[2023-07-28] MEDS ORDERED: amiodarone 200mg tablet PO SCH (08:00)
[2023-07-28] MEDS ORDERED: carVEDilol 3.125mg tablet PO SCH (08:00)
[2023-07-28] MEDS ORDERED: amiodarone 100mg tablet PO SCH (08:00)
[2023-07-28] MEDS ORDERED: levoTHYROXINE 100mcg tablet PO SCH (08:00)
[2023-07-28] MEDS: K and/or MAG REPLACEMENT MC SCH (08:00)
[2023-07-28 08:38] VITALS: PULSE 77
[2023-07-28 08:42] VITALS: BP 104/67
[2023-07-28] MEDS ORDERED: POTA-206 PO (12:11)
== END 2023-07-28 15:06 | disposition home or self-care (01) | DRG 640 ==
LOC: ER 15:19 → ED HOLD 17:53 → PCU 3S 23:35
PROVIDERS: ADMIT Family Medicine; ATTEND Family Medicine
DX: E87.6 Hypokalemia (principal); I50.23 Acute on chronic systolic (congestive) heart failure; I13.0 Hypertensive heart and chronic kidney disease with heart failure and stage 1 through stage 4 chronic kidney disease, or unspecified chronic kidney disease; N17.9 Acute kidney failure, unspecified; I48.20 Chronic atrial fibrillation, unspecified; I45.2 Bifascicular block; R07.89 Other chest pain; E87.1 Hypo-osmolality and hyponatremia; I34.0 Nonrheumatic mitral (valve) insufficiency; N18.30 Chronic kidney disease, stage 3 unspecified; E03.9 Hypothyroidism, unspecified; E78.5 Hyperlipidemia, unspecified; N40.0 Benign prostatic hyperplasia without lower urinary tract symptoms; J44.9 Chronic obstructive pulmonary disease, unspecified; T50.1X5A Adverse effect of loop [high-ceiling] diuretics, initial encounter; T50.2X5A Adverse effect of carbonic-anhydrase inhibitors, benzothiadiazides and other diuretics, initial encounter; Y92.89 Other specified places as the place of occurrence of the external cause; Z87.891 Personal history of nicotine dependence; Z86.73 Personal history of transient ischemic attack (TIA), and cerebral infarction without residual deficits; I25.2 Old myocardial infarction; Z79.899 Other long term (current) drug therapy
CPT/HCPCS: 36415; 71045; 80053; 80061; 81001; 82436; 82570; 83036; 83735; 83880; 84132; 84133; 84443; 84484; 85025; 85379; 85610; 87081; 87088; 93306; 97161; 97530; 99285; G0378; J3480; J7040